=== PATIENT | male | born 1985 | race Caucasian/White ===

== ENCOUNTER → 2020-11-03 14:34 | Outpatient (CLI) | payer BC, SELFPAY ==
--- NOTE | 2020-11-03 14:39 | RAD_ITS ---
STUDY: X-RAY - LUMBAR SPINE REASON FOR EXAM: Male, 35 years old. Back pain since May, getting worse after sleeping on the floor 2 weeks ago TECHNIQUE: 5 view(s) of the lumbar spine were obtained including oblique views. COMPARISON: None FINDINGS: There is straightening of the normal lumbar lordosis. There is no substantial scoliosis. There is a normal alignment of the vertebrae. Normal vertebral bodies and endplates. Normal disc space heights. The soft tissue structures are unremarkable. RAD/L/S Spine Min 4 Views IMPRESSION: There is straightening of the normal lumbar lordosis. Electronically Signed: Marcos John MD at 15:09 EST , Service support ,
== END ==
PROVIDERS: PCP Family Medicine; Referring Provider Family Medicine; Visit Provider Family Medicine
DX: M54.9 Dorsalgia, unspecified (principal)
CPT/HCPCS: 72110

== ENCOUNTER 2020-12-23 09:00 | Outpatient (RCR) | payer BC, SELFPAY ==
--- NOTE | 2020-11-12 19:13 | HP.PTEVAL_ITS ---
Patient's Visit Information RADHA LARKIN is a 35 year old M referred to Physical Therapy by Dr. Jaret Cardozo MD with a diagnosis of Back Pain. Date of Evaluation: 11/12/20 Physical Therapist: PIPER Cruz - Visit Plan Frequency: 2x /Week Duration: 6 Weeks Plan: 2x/ WEEK FOR 4 WEEKS for centalization of symptoms, nerve root stretches, strenghtening of core and LE's, centralizational of symtoms with HEP and modalties PRN - Subjective Pt has a back issue from 4 months ago and got worse the last couple of weeks. Saw Chiropractor and has now some pain but it is better. He did have to drag his leg around and walked bent over up until the chiropractor. He is still working with the chiropractor. He sees the Chiro and then he is back to where he was the next day. He is seeing Dr Chas Horner. His works at [employer]. He has pain down L leg (before his pain was down to the toes) now pain stops behind the knee cap ( hip, top buttock, and back of knee). He sits at work... if he maintains good posture he is pain free but sit to stand or shifting weight he has pain. He has tense and sore muslces in his back. Chiro has done. - Pain L leg pain Pain Intensity (Out of 10): 0 Back pain Pain Intensity (Out of 10): 0 Pain Intensity Range: 0 - Objective Gait: Pt walks with a L sided shift. He walks with very rigid trunk. He has increase L side buttock pain with walking on his heels. Trunk AROM: flexion 45%, Ext 25%, SB R 25%, SB L 75%. +SLR B and +Slump test B ( can not even get into. +90/90 test for nerve root pain. Patella DTR 2+/3 B. Prone lying no pain but pain getting into that position via transition. Prone to NICOL... increase L buttock pain when NICOL but when back to prone no pain....tried X 10 and was the same... pain with NICOL and no pain in prone. Palpation: no pain along B piriformis or B glute... no pain with light ext mobs down the L -spine or sacrum. LE MMT: B knee ext 3-/5 (not able to get into position), B knee flex 4+/5, B hip flex 3-/5, B hip abd 4/5, hip ext B NT - Goals Goal 1:: I HEP Goal Time Frame: 4-6 Weeks Goal 2:: Be able to have a negative B SLR/ Slump test with normal painfree nerve movment Goal Time Frame: 4-6 Weeks Goal 3:: Increase Trunk AROM to full ROM painfree Goal Time Frame: 4-6 Weeks Goal 4:: Increase LE strength by 1/2 muscle grade (at time of eval:LE MMT: B knee ext 3-/5 (not able to get into position), B knee flex 4+/5, B hip flex 3- /5, B hip abd 4/5, hip ext B NT) Goal Time Frame: 4-6 Weeks - Rehabilitation Potential Rehabilitation Potential: Good - Anticipated Interventions Patient/Client Instruction: Educate patient on: Condition, Plan of Care For the Purpose of:: To decrease pain, To increase ROM, To improve nutrient delivery to tissue, To improve muscle performance and motor function, To improve ability to perform ADL's, To increase tolerance to activity/condition/position, To improve performance and independence with ADL's, To decrease level of supervision to perform tasks, To improve ability of physical actions for home/community/work/leisure, To improve gait and locomotor functions, To improve health of tissue, To decrease soft tissue restriction, To increase flexibility/ROM Therapeutic Exercise to Include: Strength training, Endurance training, Postural training, Flexibilty training, Gait and locomotor training, Neuromotor devel opment, Passive ROM, Active ROM, Dynamic Lumbar Stabilization, Scapular Strength/Stabilization For the Purpose of:: To decrease pain, To decrease swelling/inflammation, To inc rease ROM, To improve nutrient delivery to tissue, To increase oxygenation perfusion, To improve muscle performance and motor function, To improve ability to perform ADL's, To increase tolerance to activity/condition/position, To improve performance and independence with ADL's, To improve ability of physical actions for home/community/work/leisure, To improve gait and locomotor functions, To improve health of tissue, To decrease soft tissue restriction, To increase flexibility/ROM Manual Therapy Techniques to Include: Mobilization, Passive ROM, Soft tissue mobilization For the Purpose of:: To decrease pain, To decrease swelling/inflammation, To increase ROM, To improve nutrient delivery to tissue, To increase oxygenation perfusion, To improve muscle performance and motor function, To improve ability to perform ADL's, To increase tolerance to activity/condition/position, To improve performance and independence with ADL's, To decrease level of supervision to perform tasks, To improve health of tissue, To decrease soft tissue restriction, To increase flexibility/ROM IF ES: Yes Ultrasound (thermal/non thermal): Yes For the Purpose of:: To decrease pain, To decrease swelling/inflammation, To increase ROM, To improve nutrient delivery to tissue Thank you for the opportunity to evaluate your patient. For Medicare and Medicare HMO plans, please review the plan of care and approve it. It will need to be FAXED BACK to us at [phone] for Medicare purposes. For Medicare only, by signing this I certify the plan of care. Please let me know if there are questions or concerns regarding this plan of care. Physician Signature:__ Date:
--- NOTE | 2021-06-18 08:59 | HP.PT.NRP ---
RADHA LARKIN was seen in my office for initial evaluation on 11/12/20. The following Plan of Care was established for this patient: Initial Frequency: 2x /Week Initial Duration: 6 Weeks Patient/Client Instruction: Educate patient on: Condition, Plan of Care For the Purpose of:: To decrease pain, To increase ROM, To improve nutrient delivery to tissue, To improve muscle performance and motor function, To improve ability to perform ADL's, To increase tolerance to activity/condition/position, To improve performance and independence with ADL's, To decrease level of supervision to perform tasks, To improve ability of physical actions for home/community/work/leisure, To improve gait and locomotor functions, To improve health of tissue, To decrease soft tissue restriction, To increase flexibility/ROM Therapeutic Exercise to Include: Strength training, Endurance training, Postural training, Flexibilty training, Gait and locomotor training, Neuromotor development, Passive ROM, Active ROM, Dynamic Lumbar Stabilization, Scapular Strength/Stabilization For the Purpose of:: To decrease pain, To decrease swelling/inflammation, To increase ROM, To improve nutrient delivery to tissue, To increase oxygenation perfusion, To improve muscle performance and motor function, To improve ability to perform ADL's, To increase tolerance to activity/condition/position, To improve performance and independence with ADL's, To improve ability of physical actions for home/community/work/leisure, To improve gait and locomotor functions, To improve health of tissue, To decrease soft tissue restriction, To increase flexibility/ROM Manual Therapy Techniques to Include: Mobilization, Passive ROM, Soft tissue mobilization For the Purpose of:: To decrease pain, To decrease swelling/inflammation, To increase ROM, To improve nutrient delivery to tissue, To increase oxygenation perfusion, To improve muscle performance and motor function, To improve ability to perform ADL's, To increase tolerance to activity/condition/position, To improve performance and independence with ADL's, To decrease level of supervision to perform tasks, To improve health of tissue, To decrease soft tissue restriction, To increase flexibility/ROM IF ES: Yes Ultrasound (thermal/non thermal): Yes For the Purpose of:: To decrease pain, To decrease swelling/inflammation, To increase ROM, To improve nutrient delivery to tissue This patient was last seen in our office 12/23/20. Pertinent comments regarding their Physical therapy will appear below: CAROLYN PT At this point I will be discontinuing this patient from physical therapy. I would be happy to see this patient again in the future if found appropriate by the physician. Thank you! Thais Agustin, PIPER Balance/Gait/Functional tests - Balance/Special Test Scores Oswestry Low Back Score: 13
== END 2020-12-23 19:00 | disposition home or self-care (01) ==
LOC: PT 09:00
PROVIDERS: PCP Family Medicine; Referring Provider Family Medicine; Visit Provider Family Medicine
DX: M54.9 Dorsalgia, unspecified (principal)
CPT/HCPCS: 97110; 97161

== ENCOUNTER → 2023-03-12 | Outpatient (CLI) | payer BC, SELFPAY ==
--- NOTE | 2023-03-12 07:37 | MRI_ITS ---
STUDY: MRI LUMBAR SPINE WITHOUT CONTRAST REASON FOR EXAM: Male, 37 years old. Low back pain and right-sided sciatica. TECHNIQUE: Standardized fat and water weighted pulse sequences were obtained in the sagittal and axial planes. COMPARISON: Lumbar spine radiographs 11/03/2020. FINDINGS: T11-T12 and T12-L1: (Sagittal only). Normal endplates. Normal disc height, hydration and morphology. Normal central canal and bilateral intervertebral neural foramina. Normal lumbar lordosis. There is no substantial scoliosis. Normal conus medullaris that terminates at the upper L1 vertebral body level. L1-2: Normal endplates. Normal disc height, hydration and morphology. Normal bilateral facet joints. Normal central canal and bilateral lateral recesses. Normal bilateral intervertebral neural foramina. L2-3: Normal endplates. Normal disc height, hydration and morphology. Normal bilateral facet joints. Normal central canal and bilateral lateral recesses. Normal bilateral intervertebral neural foramina. L3-4: Normal endplates. Normal disc height, hydration and morphology. Normal bilateral facet joints. Normal central canal and bilateral lateral recesses. Normal bilateral intervertebral neural foramina. L4-5: Modic type I and type II degenerative changes in the left side of the vertebral endplates. Moderate left-sided disc space height narrowing. Mild degenerative retrolisthesis of L4 on L5. Mild left degenerative facet arthropathy. Normal right facet joint. Large right posterior caudal disc extrusion causing posterior displacement of the right L5 nerve root sleeve. Moderate central canal stenosis with an AP canal diameter 7 mm. Moderate stenosis of the right lateral recess. Normal left lateral recess. Mild stenosis of the left intervertebral neural foramen. L5-S1: Normal endplates. Normal disc height, hydration and morphology. Normal bilateral facet joints. Normal central canal and bilateral lateral recesses. Normal bilateral intervertebral neural foramina. Normal visualized sacral ala. Normal visualized paraspinous soft tissue structures. MRI/Spine Lumbar (Routine) IMPRESSION: Large right L4-L5 posterior caudal disc extrusion causing posterior displacement of the right L5 nerve root sleeve and moderate stenosis of the right lateral recess. Additionally, mild degenerative retrolisthesis of L4 on L5, moderate central canal stenosis with an AP canal diameter 7 mm and mild stenosis of the left intervertebral neural foramen. Electronically Signed: Vikas Coombs MD at 14:58 EDT ,
== END | disposition home or self-care (01) ==
LOC: MRI 07:32
PROVIDERS: PCP Family Medicine
DX: M51.16 Intervertebral disc disorders with radiculopathy, lumbar region (principal)
CPT/HCPCS: 72148